=== PATIENT | female | born 1965 | race Caucasian/White ===

== ENCOUNTER 2018-08-13 18:02 | Emergency (ER) | payer SELFPAY ==
--- NOTE | 2018-08-13 18:06 | ED Physician Documentation ---
General Adult - HISTORIAN Historian: patient - HPI Stated Complaint: back pain Chief Complaint: General Adult Onset: days ago Timing: still present Further Comments: yes (Pt is a 52 yo male with back pain x 1 day. 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 Pain is in L buttocks and radiates to R leg. Pt has had back surgery x 2. Pt presents with elevated blood pressure. He takes Clonidine, Metoprolol, and Benazapril, but has been out of some of his meds for a few days.) - ROS CONST: no problems EYES/ENT: none CVS/RESP: none GI/: none MS/SKIN/LYMPH: back pain - PAST HX Past History: other (back surgery x 2; HTN) Allergies/Adverse Reactions: Allergies Allergy/AdvReac Type Severity Reaction Status Date / Time Penicillins Allergy Hives Verified 08/13/18 18:59 Home Medications: Ambulatory Orders Medication Instructions Recorded Benazepril HCl [Lotensin] 40 mg PO DAILY 08/13/18 Clonidine HCl [Catapres] 0.1 mg PO TID 08/13/18 Metoprolol Tartrate [Lopressor] 100 mg PO BID 08/13/18 - SOCIAL HX Smoking History: cigarettes - FAMILY HX Family History: No - REVIEWED ASSESSMENTS Nursing Assessment Reviewed: Yes Vitals Reviewed: Yes Progress - Progress Progress: Toradol 60 mg IM Norflex 60 mg IM Dilaudid 1 mg IM X-ray L spine: Mild degenerative change but no acute abnormality. Pt's initial elevated BP 220/120 was expected to improve to some degree when back pain was controlled. This did not occur, however, and pt's BP remained markedly elevated. Work up with IV and labs was then pursued to eval and tx HTN Pt given Metoprolol 100 mg po Hydralazine 10 mg IV x 2 BP 177/97 Pt given prescription refills as follows and urged to f/u for markedly elevated BP. Rx Benazepril 40 mg. Take one by mouth once daily. Rx Clonidine 0.2 mg. Take one by mouth every 12 hours. It is very important that you follow up with specialist about your blood pressure soon. Monitor you pressures and keep a blood pressure diary. Treatment for back pain Rx [place] (5/325). Take one or two every 4 to 6 hours as needed for moderate to severe pain. Disp: 15 General Adult Physical Exam - PHYSICAL EXAM GENERAL APPEARANCE: moderate distress EENT: pharynx normal NECK: normal inspection, supple RESPIRATORY: no resp distress, chest non-tender, breath sounds normal CVS: reg rate & rhythm, heart sounds normal ABDOMEN: soft, no organomegaly, normal bowel sounds BACK: normal inspection, other (lower lumbar muscle spasm) SKIN: warm/dry, normal color EXTREMITIES: non-tender, normal range of motion, no evidence of injury, no edema NEURO: oriented X3, motor nml, sensation nml Discharge Clincal Impression: Hypertension Low back pain Qualifiers: Chronicity: acute Back pain laterality: left Sciatica presence: with sciatica Sciatica laterality: sciatica of left side Qualified Code(s): M54.42 - Lumbago with sciatica, left side Referrals: Primary Doctor,No [Primary Care Provider] - Condition: Stable Disposition: 01 HOME, SELF-CARE Decision to Admit: NO Decision Time: 22:45
[2018-08-13] MEDS ORDERED: (BACK ORDERED; DO NOT ORDER) DIAZEPAM 5 MG/ML DISP.SYRIN IM ONE (18:18)
[2018-08-13] MEDS ORDERED: KETOROLAC TROMETHAMINE 60 MG/2 ML VIAL IM ONE (18:18)
[2018-08-13] MEDS ORDERED: ORPHENADRINE CITRATE 60 MG/2ML ONE (18:22)
[2018-08-13] MEDS ORDERED: ORPHENADRINE CITRATE 60 MG/2ML IM ONE (18:58)
[2018-08-13] MEDS ORDERED: HYDROmorphone HCL/PF 1 MG/ML DISP.SYRIN IM ONE (18:59)
[2018-08-13] MEDS ORDERED: METOPROLOL TARTRATE 50 MG TABLET ONE (19:27)
[2018-08-13] MEDS ORDERED: METOPROLOL TARTRATE 50 MG TABLET PO ONE (19:41)
[2018-08-13] MEDS ORDERED: METOPROLOL TARTRATE 5 MG/5 ML VIAL IVP ONE (19:42)
[2018-08-13] MEDS ORDERED: CloNIDine HCL 0.1 MG TABLET PO ONE (20:10)
[2018-08-13] MEDS ORDERED: hydrALAZINE HCL 20 MG/1 ML IVP ONE ×2 (20:25→21:12)
[2018-08-13 21:05] LABS: eGFR (Non-African) 42
[2018-08-13] MEDS ORDERED: DIAZEPAM 5 MG TABLET PO ONE (21:44)
[2018-08-13 22:25] VITALS: BP 203/105
--- NOTE | 2018-08-14 06:27 | Diagnostic Imaging Report ---
ERIC MARROQUIN [facility] [id number] [facility] [address] [id number] Report Submission Date: Aug 13, 2018 6:52:08 PM CDT Patient Study Name: TD CHINCHILLA Date: Aug 13, 2018 6:22:53 PM CDT Modality Type: DX Gender: F Description: SPINE : 63 Institution: [facility] Physician: ERIC MARROQUIN Lumbar spine, AP and lateral History: Injury, pain Findings: No fracture, subluxation or abnormal bone production or destruction is identified. The vertebral bodies are of normal height. Loss of disc height is noted at L5/S1. Degenerative changes of the facet joints are noted in the lower lumbar spine. Impression: Mild degenerative change but no acute abnormality. Electronically signed on Aug 13, 2018 6:52:08 PM CDT by: Michael ROMEO
== END 2018-08-13 22:45 | disposition home or self-care (01) ==
LOC: ED 18:02
DX: I10 Essential (primary) hypertension (principal); M54.42 Lumbago with sciatica, left side
CPT/HCPCS: 72100; 80053; J0360; J1170; J1885; J2360; 96372; 96374; 96376; 99284; S1016